=== PATIENT | male | born 1995 | race African-American/Black ===

== ENCOUNTER 2017-06-13 09:54 | Emergency (ER) | payer SELFPAY ==
[~2017-06-13] VITALS: Ht 172.7 cm; Wt 70.0 kg
[2017-06-13] MEDS ORDERED: KEPP500 PO (09:58)
[2017-06-13] MEDS ORDERED: SODIUM CHLORIDE 0.9% 1,000 ML IV ONE (10:12)
[2017-06-13] MEDS ORDERED: LEVETIRACETAM 500MG PREMIX 100 ML IV ONE (10:15)
[2017-06-13] MEDS ORDERED: TOPIRAMATE 100MG TABLET PO STA (10:25)
[2017-06-13 10:33] LABS: BASOPHILS % 0.4 % (0.0-2.0); EOSINOPHILS % 0.7 % (0.0-5.0); HEMATOCRIT. 43.3 % (42.0-52.0); HEMOGLOBIN. 14.6 g/dL (14.0-18.0); LYMPHOCYTES % 25.9 % (20.0-50.0); MEAN CORPUSCULAR HEMOGLOBIN 31.2 pg (28.0-32.0); MEAN CORPUSCULAR VOLUME 92.4 fL (80.0-94.0); MEAN PLATELET VOLUME 9.3 fl (7.4-10.4); MONOCYTES % 9.2 % (2.0-8.0); NEUTROPHILS % 63.8 % (40.0-76.0); PLATELET 184 x1000/uL (130-400); RED BLOOD CELL COUNT 4.68 mill/uL (4.7-6.1); RED CELL DISTRIBUTION WIDTH 12.8 % (11.6-14.6)
[2017-06-13 10:47] LABS: CARBON DIOXIDE 25 mEq/L (21-32); CHLORIDE 107 mEq/L (98-107)
[2017-06-13] MEDS ORDERED: POTASSIUM CHLORIDE 20MEQ TABLET SR PO ONE (11:15)
[2017-06-13 12:03] VITALS: BP 122/65
== END 2017-06-13 12:09 | disposition home or self-care (01) ==
LOC: ER 09:59
DX: R56.9 Unspecified convulsions (principal)
CPT/HCPCS: 36415; 80053; 85025; 96365; 99284; J1953; J7030; Z7610

== ENCOUNTER 2024-07-21 17:40 | Emergency (ER) | payer MEDICAID ==
[~2024-07-21] VITALS: Ht 185.4 cm; Wt 72.0 kg
[~2024-07-21 17:40] MED LIST: KEPP500 PO
[2024-07-21 17:50] VITALS: O2SAT 100
[2024-07-21 17:56] VITALS: BP 123/78; PULSE 82; RESP 16; TEMP 98; O2SAT 100
[2024-07-21] MEDS ORDERED: LEVE750T4 MT (17:58)
== END 2024-07-21 18:06 | disposition home or self-care (01) ==
LOC: ER 17:40
DX: G40.909 Epilepsy, unspecified, not intractable, without status epilepticus (principal); Z76.0 Encounter for issue of repeat prescription
CPT/HCPCS: 99281